=== PATIENT | female | born 1960 | race Caucasian/White ===

== ENCOUNTER 2022-11-03 11:19 | Emergency (ER) | payer OTHER ==
--- OUTSIDE RECORDS SUMMARY | 2022-11-03 11:25 | XMS REPORT | Continuity of Care Document ---
:1960 Author Organization [facility] t Address [address] [place] [address] Care Team Providers Name Role Phone Kluadia Attending Clinician Unavailable Lisandro Eduardo Attending Clinician Unavailable NEIL JEAN Attending Clinician Unavailable ABHIJEET JEAN Attending Clinician Unavailable Klaudia Admitting Clinician Unavailable Lisandro Eduardo Admitting Clinician Unavailable Payers Payer Name Policy Type Policy Number Effective Date Expiration Date Lázaro boudreaux [employer] - CHOICE [id number] 2020 00:00:00 (POS II) Problems Condition Condition Condition Status Onset Resolution Last Treating Co mments Source Name Details Category Date Date Treatment Clinician Date Chondromal Chondromal Problem Active 2021-10 A zalea acia of [facility] of 0-21 [facility] left Left 00:00: dic patella Patella 00 [facility] Neck pain Neck Pain Problem Active 2021-10 Aza shon 0-14 Orthope 00:00: dic 00 [facility] Cervical Cervical Problem Active 2021-10 Azale a radiculopa Radiculopa 0-14 Or thope thy thy 00:00: dic 00 Sports Medic[facility] Pain of Pain of Problem Active 2021-10 [facility] right Right 0-14 [facility] shoulder Shoulder 00:00: dic joint Joint 00 Sports Medicin e Allergies, Adverse Reactions, Alerts Allergy Allergy Status Severity Reaction(s) Onset Inactive Treating Comm ents Source Name Type Date Date Clinician No Known DA Active U 2021-10 [facility]ie 11-03 [place] [facility] 00[facility] No Known DA Active U 2021-10 [facility] Allergie 11-02 [facility] 00:00: Orthope 00 dic Hospita l Lactose Allergy Active [facility] to Orthope substanc dic e Sports Medicin e Social History Smoking Status Start Date Stop Date Source Never Smoker [facility] Medications Ordered Filled Start Stop Current Ordering Indication Dosage Frequency Signature Comments Components Source Medication Medication Date Date Medication? Clinician (SIG) Name Name prednisone prednisone No 1 TID prednisone [facility] 10 mg 10 mg 10 mg [facility] tablet Take tablet Take tablet dic 1 tablet 3 1 tablet 3 Take 1 S ports times a day times a day tablet 3 Medicin by oral by oral times a e route for route for day by 10 days. 10 days. oral route for 10 days. tizanidine tizanidine No 1 Q1D tizanidine [facility] 4 mg tablet 4 mg tablet 4 mg O rthope Take 1 Take 1 tablet dic tablet tablet Take 1 Sports every day every day tablet Med icin by oral by oral every day e route at route at by oral bedtime. bedtime. route at bedtime. meloxicam meloxicam No 1 Q1D meloxicam [facility] 15 mg 15 mg 15 mg [facility] tablet Take tablet Take tablet dic 1 tablet 1 tablet Take 1 Sport s every day every day tablet Med icin by oral by oral every day e route. route. by oral route. prednisone prednisone No 1 TID prednisone [facility] 10 mg 10 mg 10 mg [facility] tablet Take tablet Take tablet dic 1 tablet 3 1 tablet 3 Take 1 S ports times a day times a day tablet 3 Medicin by oral by oral times a e route for route for day by 10 days. 10 days. oral route for 10 days. tizanidine tizanidine No 1 Q1D tizanidine [facility] 4 mg tablet 4 mg tablet 4 mg O rthope Take 1 Take 1 tablet dic tablet tablet Take 1 Sports every day every day tablet Med icin by oral by oral every day e route at route at by oral bedtime. bedtime. route at bedtime. Vital Signs Vital Name Observation Time Observation Value Comments Source Height 2022-07-15 00:00:00 65 [in_i] [facility] Body Weight 2022-07-15 00:00:00 150 [lb_av] [facility] Procedures Procedure Date / Time Performed Performing Clinician Sourc e XR, shoulder, 2 or 2022-07-15 00:00:00 [facility] Or [facility]opedic more view Sports Medicine RADEX SPI 1 VIEW SPEC 2022-07-15 00:00:00 [facility] LVL Sports Medicine MRI CERVICAL SPINE 2022-07-15 00:00:00 [facility] W/O CONTRAST Sports Medicine Encounters Start End Encounter Admission Attending Care Care Encounter Source Date/Time Date/Time Type Type Clinicians Facility Department ID 2022-10-19 2022-10-19 Outpatient FOG_Burke_R AOSM AOSM [id number] [facility] 00:00:00 00:00:00 [place] [id number] Ortho pe dic Sports Medicin e 2022-09-02 2022-09-02 Outpatient LISSET Eduardo, HCATO PAIN [id number] [facility] 06:37:00 06:37:00 Lisandro [facility] [place] [facility] 2022-07-22 2022-07-22 Outpatient FOG_Burke_R AOSM AOSM [id number] [facility] 00:00:00 00:00:00 [place] [id number] Ortho pe dic Sports Medicin e 2022-07-22 2022-07-22 Sunny Lopez AOSM [place] - Ortho [place] 00:00:00 00:00:00 MD Yomi: [facility] [address] [place] [address] , Ph. [phone] 2022-07-15 2022-07-15 Outpatient FOG_Burke_R AOSM AOSM [id number] [place] 00:00:00 00:00:00 Diego [id number] Ortho pe dic Sports Medicin e 2022-07-15 2022-07-15 Sunny Lopez AOSM [place] - Ortho [place] 00:00:00 00:00:00 MD Yomi: [facility] [address], [place] [address] , Ph. [phone] 2022-07-12 2022-07-12 Outpatient FOG_Burke_R AOSM AOSM [id number] [facility] 00:00:00 00:00:00 Diego [id number] Ortho pe dic Sports Medicin e 2022-07-11 2022-07-11 Outpatient FOG_Burke_R AOSM AOSM [id number] [facility] 00:00:00 00:00:00 [place] [id number] Ortho pe dic Sports Medicin e 2021-07-02 2021-07-02 Outpatient INJ, JOAQUINA CAPONE [id number] [place] 10:00:00 10:00:00 [facility]IL [facility] 2021-07-02 2021-07-02 Outpatient INJ, JOAQUINA CAPONE [id number] [place] 09:00:00 09:00:00 ABHIJEET church Results Test Description Test Time Test Comments Results Result [facility] Comments - XR FLUORO FOR 2022-09-29 SPINE INJ 15:57:00 [facility] : 1960 Sex: F Patient Name: MARICEL MCKEE Unit No: [id number] EXAMS: CPT CODE: [id number] XR FLUORO FOR SPINE INJ [id number] CERVICAL INTERLAMINAR CHANTEL PROCEDURE: 1) C6-7 interlaminar epidural steroid injection 2) Fluoroscopic needle guidance REASON FOR PROCEDURE: Cervical Radiculopathy PHYSICIAN: Lisandro Eduardo MD MEDICATIONS INJECTED: 2 mL of Kennalog(80 mg) and 1 mL of sterile, preservative-free normal saline LOCAL ANESTHETIC INJECTED: 5 mL of 1% lidocaine ESTIMATED BLOOD LOSS: None COMPLICATIONS: None TECHNIQUE: Time-out was taken to identify the correct patient, procedure and side prior to starting the procedure. With the patient lying in a prone position with the neck in a slightly flexed position, the area was prepped and draped in sterile fashion using DuraPrep and a fenestrated drape. The area was determined under fluoroscopic guidance. A 27-gauge, 1.25-inch needle was used to anesthetize the needle entry site and subcutaneous tissues. The 18-gauge, 3.5-inch Tuohy needle was advanced through the ligamentum flavum using loss of resistance technique. Once the tip of the needle was thought to be in the desired position, the Omnipaque 240 was injected to confirm only epidural spread and no vascular runoff via A-P and contralateral oblique views. The injectate was then injected slowly. The procedure was completed without complications and was tolerated well. The patient was monitored after the procedure. The patient (or responsible republican) was given post-procedure and discharge instructions to follow at home. The patient was discharged in stable condition. A follow-up appointment was made. at 1551 Reported and signed by: GARY OWENS MD CC: Technologist: Oneida aDwkins(R) Transcribed D/ (8413) [facility] [place] NAME: MARICEL MCKEE [address] [facility] PHYS: Lisandro Cope MD [place], [place] [address] : 1960 AGE: 62 SEX: F LOC: [place] PHONE #: [phone] EXAM DATE: 09/02/2022 STATUS: [facility] FAX #: [phone] RAD #: D/C DT PAGE 1 Signed Report Patient Name: MARICEL MCKEE Unit No: [id number] EXAMS: CPT CODE: [id number] XR FLUORO FOR SPINE INJ [id number] (Continued) Orig Print D/T: S: 09/29/2022 (1600) [facility] [place] NAME: MARICEL MCKEE [address] [facility] PHYS: Lisandro Cope MD [place], [place] [address] : 1960 AGE: 62 SEX: F LOC: [place] PHONE #: [phone] EXAM DATE: 09/02/2022 [place]: [facility] FA[place] #: [phone] RAD #: D/C DT PAGE 2 Signed Report
--- NOTE | 2022-11-03 12:10 | RAD REPORT ---
EXAM DESCRIPTION: CT - Head Brain Wo Cont - 11/03/2022 11:59 am CLINICAL HISTORY: Headache, new or worsening COMPARISON: No comparisons TECHNIQUE: Axial 5 mm thick images of the head were obtained without IV contrast. All CT scans are performed using dose optimization technique as appropriate and may include automated exposure control or mA/KV adjustment according to patient size. FINDINGS: No intracranial hemorrhage, mass, edema or shift of mid-line structures. No acute infarcti on changes seen. No abnormal extra-axial fluid collections. Ventricles are normal. Mastoid air cells and visualized portions of the paranasal sinuses are clear. No acute bony findings. IMPRESSION: Negative non-contrast CT head examination.
[2022-11-03] MEDS ORDERED: METOCLOPRAMIDE 10 MG/2mL INJ ONE (13:19)
[2022-11-03] MEDS ORDERED: DIPHENHYDRAMINE 50 MG/ML VIAL ONE (13:20)
[2022-11-03] MEDS ORDERED: KETOROLAC 30 MG/ML INJ ONE (13:20)
[2022-11-03] MEDS ORDERED: NA CHLORIDE 0.9% 1,000 ML ONE (13:20)
--- NOTE | 2022-11-03 14:09 | EDPHYS ---
Physician Documentation [facility] Name: Mallory Foy Age: 62 yrs Sex: Female : 1960 Arrival Date: 11/03/2022 Time: 11:21 Bed 14 Private MD: Garrett Gordon ED Physician Ashwin Dong HPI: 11/03 13:08 This 62 yrs old Female presents to ER via Ambulatory with complaints of Headache, pm1 Dizziness, Nausea. 13:08 The patient complains of pain to the forehead and right eye. Onset: The pm1 symptoms/episode began/occurred today. Associated signs and symptoms: Pertinent positives: dizziness, nausea, Pertinent negatives: fever. Severity of symptoms: in the emergency department the pain is unchanged, a " 6" out of "10". Headache History: Denies prior headaches. The symptoms are alleviated by closing eyes the symptoms are aggravated by lights, movement. The patient has not experienced similar symptoms in the past. The patient has not recently seen a physician. Historical: - Allergies: 11:32 Ceclor; ll1 - PMHx: 11:32 Hypertensive disorder; Hypercholesterolemia; Migraine; 2 herniated discs in neck; ll1 - PSHx: 11:32 None; ll1 - Immunization history:: Client reports receiving the 2nd dose of the Covid vaccine. - Social history:: Smoking status: Patient denies any tobacco usage or history of. ROS: 13:08 Constitutional: Negative for fever, chills, and weight loss, Eyes: Negative for injury, pm1 pain, redness, and discharge, ENT: Negative for injury, pain, and discharge. 13:08 Cardiovascular: Negative for chest pain, palpitations, and edema, Respiratory: Negative for shortness of breath, cough, wheezing, and pleuritic chest pain. 13:08 Back: Negative for injury and pain, MS/Extremity: Negative for injury and deformity, Skin: Negative for injury, rash, and discoloration. 13:08 Neck: Positive for chronic neck pain due to herniated discs. 13:08 Abdomen/GI: Positive for nausea, Negative for abdominal pain, vomiting, diarrhea. 13:08 Neuro: Positive for headache to right side of forehead and behind right eye. 13:08 All other systems are negative. Exam: 13:08 Constitutional: This is a well developed, well nourished patient who is awake, alert, pm1 and in no acute distress. Head/Face: Normocephalic, atraumatic. 13:08 Back: No spinal tenderness. No costovertebral tenderness. Full range of motion. Skin: Warm, dry with normal turgor. Normal color with no rashes, no lesions, and no evidence of cellulitis. MS/ Extremity: Pulses equal, no cyanosis. Neurovascular intact. Full, normal range of motion. 13:08 Eyes: Nystagmus: bilateral with eyes looking to the right. Observed by during examination. Dizziness reproduced with moving head side to side and improved with closing her eyes. 13:08 ENT: Exam is negative for acute changes, Mouth: no acute changes, Lips: normal, moist, Oral mucosa: normal, pink and intact, moist. 13:08 Cardiovascular: Exam negative for acute changes, Rate: normal, Rhythm: regular, Pulses: no pulse deficits are appreciated. 13:08 Respiratory: Exam negative for acute changes, respiratory distress, shortness of breath. 13:08 Neuro: Exam negative for acute changes, Orientation: is normal, Mentation: is normal, Cranial nerves: CN II- XII are normal as tested, Cerebellar function: normal finger to nose testing, Motor: moves all fours, strength is 5/5 in all extremities, Sensation: is normal, no obvious gross deficits. Vital Signs: 11:28 BP 140 / 67; Pulse 63; Resp 17; Temp 98.5; Pulse Ox 100% on R/A; Weight 70.31 kg; ll1 Height 5 ft. 5 in. (165.10 cm); Pain 7/10; 13:30 BP 125 / 71; Pulse 70; Resp 18; Pulse Ox 98% on R/A; eh3 14:30 BP 113 / 53; Pulse 63; Resp 18; Pulse Ox 98% on R/A; eh3 11:28 Body Mass Index 25.79 (70.31 kg, 165.10 cm) ll1 MDM: 12:34 Patient medically screened. pm1 14:02 Data reviewed: vital signs. pm1 14:02 Differential diagnosis: cluster headache, migraine, tension headache, benign positional pm1 vertigo. 14:06 ED course: Patient reports medication effective in managing her headache and dizziness. pm1 Patient's headache is reported as minimal and her vertigo is resolved. 300 mL fluid remaining, will complete infusion of medication and discharged home. 14:38 ED course: Pmpaware reviewed. pm1 14:38 Counseling: I had a detailed discussion with the patient and/or guardian regarding: the pm1 historical points, exam findings, and any diagnostic results supporting the discharge/admit diagnosis, radiology results, the need for outpatient follow up, to return to the emergency department if symptoms worsen or persist or if there are any questions or concerns that arise at home. 11/03 11:40 Order name: CT Head Brain wo Cont; Complete Time: 12:53 pm1 11/03 13:07 Order name: IV Saline Lock; Complete Time: 13:46 pm1 Administered Medications: 13:30 Drug: NS 0.9% 1000 ml Route: IV; Rate: 1000 ml; Site: right antecubital; eh3 14:45 Follow up: IV Status: Completed infusion; IV Intake: 1000ml eh3 13:30 Drug: Reglan (metoCLOPramide) 10 mg Route: IVP; Site: right antecubital; eh3 14:30 Follow up: Response: Nausea is decreased eh3 13:30 Drug: Benadryl (diphenhydrAMINE) 25 mg Route: IVP; Site: right antecubital; eh3 14:30 Follow up: Response: No adverse reaction eh3 13:30 Drug: Ketorolac 15 mg Route: IVP; Site: right antecubital; eh3 14:30 Follow up: Response: Pain is decreased eh3 Disposition: 19:22 Co-signature as Attending Physician, Ashwin JACKSON was immediately available on-site ms3 in the Emergency Department for consultation in the care of the patient. Disposition Summary: 11/03/22 14:08 Discharge Ordered Location: Home pm1 Problem: new pm1 Symptoms: have improved pm1 Condition: Stable pm1 Diagnosis - Headache pm1 - Benign paroxysmal vertigo pm1 Followup: pm1 - With: Emergency Department - When: As needed - Reason: Worsening of condition Followup: pm1 - With: Private Physician - When: 2 - 3 days - Reason: Recheck today's complaints, Continuance of care, Re-evaluation by your physician Discharge Instructions: - Discharge Summary Sheet pm1 - Benign Positional Vertigo pm1 - General Headache Without Cause pm1 Forms: - Medication Reconciliation Form pm1 - Thank You Letter pm1 - Antibiotic Education pm1 - Prescription Opioid Use pm1 Prescriptions: - Meclizine 25 mg Oral Tablet - take 1 tablet by ORAL route every 8 hours As needed; 30 tablet; Refills: 0, pm1 Product Selection Permitted - ondansetron 4 mg Oral - take 4 milligrams by SUBLINGUAL route every 8 hours; 15 tablet; Refills: 0, pm1 Product Selection Permitted - [id number] - take 1 tablet by ORAL route every 6 hours As needed; 20 tablet; Refills: 0, pm1 Product Selection Permitted Signatures: Dispatcher [employer] EDAugusto Mcwilliams NP RUBBER BALL FINISHER pm1 Hema Marie RN RN ll1 Ashwin Dong DO DO ms3 Anastasia Anthony RN RN eh3
--- NOTE | 2022-11-03 14:09 | ER ---
Nurse's Notes [facility] Name: Mallory Foy Age: 62 yrs Sex: Female : 1960 Arrival Date: 11/03/2022 Time: 11:21 Bed 14 Private MD: Garrett Gordon Diagnosis: Headache;Benign paroxysmal vertigo Presentation: 11/03 11:28 Chief complaint: Patient states: Sudden onset of VALENTIN, dizzy, nausea for 1 day. ll1 Coronavirus screen: Vaccine status: Patient reports receiving the 2nd dose of the covid vaccine. Client denies travel out of the [place] in the last 14 days. headache, nausea. Ebola Screen: Patient denies travel to an Ebola-affected area in the 21 days before illness onset. Initial Sepsis Screen: Does the patient meet any 2 criteria? No. Patient's initial sepsis screen is negative. Does the patient have a suspected source of infection? Yes: S/S of meningitis or endocarditis. Risk Assessment: Do you want to hurt yourself or someone else? Patient reports no desire to harm self or others. Onset of symptoms was November 03, 2022. 11:28 Method Of Arrival: Ambulatory [facility] 11:28 Acuity: CHANTEL 3 1 Triage Assessment: 13:15 Headache History: The patient has had previous headaches and this one is different than 3 previous episodes. General: Appears in no apparent distress. uncomfortable. General: Behavior is calm, cooperative, appropriate for age. Pain: Pain currently is 10 out of 10 on a pain scale. Pain began 1 day ago. Also complains of nausea, photophobia. Historical: - Allergies: 11:32 Ceclor; ll1 - PMHx: 11:32 Hypertensive disorder; Hypercholesterolemia; Migraine; 2 herniated discs in neck; ll1 - PSHx: 11:32 None; ll1 - Immunization history:: Client reports receiving the 2nd dose of the Covid vaccine. - Social history:: Smoking status: Patient denies any tobacco usage or history of. Screenin:15 [facility] ED Fall Risk Assessment (Adult) History of falling in the last 3 months, 3 including since admission No falls in past 3 months (0 pts) Confusion or Disorientation No (0 pts) Intoxicated or Sedated No (0 pts) Impaired Gait No (0 pts) Mobility Assist Device Used No (0 pt) Altered Elimination No (0 pt) Score/Fall Risk Level 0 - 2 = Low Risk. Abuse screen: Denies threats or abuse. Denies injuries from another. Nutritional screening: No deficits noted. Tuberculosis screening: No symptoms or risk factors identified. Assessment: 13:15 General: Appears in no apparent distress. uncomfortable, Behavior is cooperative, eh3 appropriate for age. Pain: Complains of pain in right eye and forehead. Neuro: Level of Consciousness is awake, alert, obeys commands, Oriented to person, place, time, situation. Cardiovascular: Capillary refill < 3 seconds Patient's skin is warm and dry. Respiratory: Airway is patent Respiratory effort is even, unlabored, Respiratory pattern is regular, symmetrical. GI: Abdomen is flat, non-distended. Derm: Skin is pink, warm \T\ dry. Musculoskeletal: Circulation, motion, and sensation intact. Range of motion: intact in all extremities. 14:15 Reassessment: Patient appears in no apparent distress at this time. Patient and/or eh3 family updated on plan of care and expected duration. Pain level reassessed. Patient is alert, oriented x 3, equal unlabored respirations, skin warm/dry/pink. Patient states symptoms have improved. Vital Signs: 11:28 BP 140 / 67; Pulse 63; Resp 17; Temp 98.5; Pulse Ox 100% on R/A; Weight 70.31 kg; ll1 Height 5 ft. 5 in. (165.10 cm); Pain 7/10; 13:30 BP 125 / 71; Pulse 70; Resp 18; Pulse Ox 98% on R/A; eh3 14:30 BP 113 / 53; Pulse 63; Resp 18; Pulse Ox 98% on R/A; eh3 11:28 Body Mass Index 25.79 (70.31 kg, 165.10 cm) ll1 ED Course: 11:21 Patient arrived in ED. as 11:21 Garrett Gordon MD is Private Physician. as 11:24 Augusto Mcdonald NP is PHCP. pm1 11:24 Ashwin Dong DO is Attending Physician. pm1 11:32 Triage completed. ll1 11:32 Arm band placed on. ll1 11:59 CT Head Brain wo Cont In Process Unspecified. EDMS 13:13 Anastasia Anthony, RN is Primary Nurse. eh3 13:15 Patient has correct armband on for positive identification. Bed in low position. Call 3 light in reach. Side rails up X2. Adult w/ patient. Pulse ox on. NIBP on. Door closed. Noise minimized. Lights dimmed. Pillow given. 13:25 Inserted saline lock: 20 gauge in right antecubital area, using aseptic technique. eh3 14:57 No provider procedures requiring assistance completed. IV discontinued, intact, mb9 bleeding controlled, No redness/swelling at site. Pressure dressing applied. Administered Medications: 13:30 Drug: NS 0.9% 1000 ml Route: IV; Rate: 1000 ml; Site: right antecubital; eh3 14:45 Follow up: IV Status: Completed infusion; IV Intake: 1000ml 3 13:30 Drug: Reglan (metoCLOPramide) 10 mg Route: IVP; Site: right antecubital; eh3 14:30 Follow up: Response: Nausea is decreased 3 13:30 Drug: Benadryl (diphenhydrAMINE) 25 mg Route: IVP; Site: right antecubital; eh3 14:30 Follow up: Response: No adverse reaction 3 13:30 Drug: Ketorolac 15 mg Route: IVP; Site: right antecubital; eh3 14:30 Follow up: Response: Pain is decreased 3 Medication: 14:57 VIS not applicable for this client. 3 Intake: 14:45 IV: 1000ml; Total: 1000ml. 3 Outcome: 14:08 Discharge ordered by . pm1 14:56 Discharged to home ambulatory. mb9 14:56 Condition: stable 14:56 Discharge instructions given to patient, Instructed on discharge instructions, follow up and referral plans. Demonstrated understanding of instructions, follow-up care, medications, Prescriptions given X 3. 14:57 Patient left the ED. mb9 Signatures: Dispatcher [employer] Zaira Corona Patrick, ROBERT MANAGER SIMULATION pm1 Hema Marie RN RN ll1 Anastasia Anthony RN RN eh3 Molly Easley RN RN mb9
[2022-11-03 15:20] VITALS: TEMP 98.5
[2022-11-03 15:25] VITALS: O2SAT 98
[2022-11-03 15:30] VITALS: BP 113/53
== END 2022-11-03 14:57 | disposition home or self-care (01) ==
LOC: ER 11:19
DX: R51.9 Headache, unspecified (principal); H81.10 Benign paroxysmal vertigo, unspecified ear; I10 Essential (primary) hypertension; Z88.3 Allergy status to other anti-infective agents
CPT/HCPCS: 96361; 70450; 96375; 96374; 99284; J2765; J1200; J7030